=== PATIENT | female | born 1995 | race Caucasian/White ===

== ENCOUNTER 2020-08-24 06:10 | Inpatient (IN) ==
[2020-08-24] MEDS ORDERED: D5 1/2 NS 1000 ML 1,000 ML IV SCH (06:31)
[2020-08-24] MEDS: ANCEF VIAL 1 GRAM IVP ONE ×2 (06:31)
[2020-08-24] MEDS ORDERED: ANCEF 1 GRAM IV PREMIX* 1 G/50 ML BAG IV ONE ×2 (06:33→15:58)
[2020-08-24] MEDS ORDERED: VASOSTRICT INJ 20 UNITS VIAL ONE (06:53)
[2020-08-24] MEDS ORDERED: BETADINE SOLN ONE (06:53)
[2020-08-24 06:57] VITALS: BMI 26.0
[2020-08-24] MEDS ORDERED: TORADOL 30 MG VIAL ONE (07:00)
[2020-08-24] MEDS ORDERED: OFIRMEV IV 1000 MG VIAL 1,000 MG/100 ML VIAL IV ONE (07:01)
[2020-08-24] MEDS ORDERED: FENTANYL INJ 100 mcg ONE ×2 (07:01→15:40)
[2020-08-24] MEDS ORDERED: NS 1000 ML 1,000 ML ONE ×4 (07:01→17:42)
[2020-08-24] MEDS ORDERED: DILAUDID INJ ONE (07:01)
[2020-08-24] MEDS ORDERED: ROBINUL ONE ×2 (07:20→16:09)
[2020-08-24] MEDS ORDERED: NORCURON INJ 10 MG VIAL ONE ×2 (07:20→16:09)
[2020-08-24] MEDS ORDERED: QUELICIN (OR ANECTINE) ONE ×2 (07:20→16:09)
[2020-08-24] MEDS ORDERED: VERSED ONE ×2 (07:20→16:09)
[2020-08-24] MEDS ORDERED: ULTANE GAS IN ONE ×2 (07:20→16:09)
[2020-08-24] MEDS ORDERED: DIPRIVAN VIAL ONE ×2 (07:20→16:09)
[2020-08-24] MEDS ORDERED: XYLOCAINE 1 % (PLAIN) ONE (07:20)
[2020-08-24] MEDS ORDERED: NEOSTIGMINE INJ ONE ×2 (07:20→16:09)
[2020-08-24] MEDS ORDERED: DECADRON INJ ONE (07:20)
[2020-08-24] MEDS ORDERED: ZOFRAN INJ 4 MG VIAL ONE ×2 (07:20→16:09)
[2020-08-24] MEDS ORDERED: BENADRYL INJ 50 MG VIAL IVP PRN ×4 (09:13→17:55)
[2020-08-24] MEDS ORDERED: PHENERGAN INJ 25 MG IM PRN ×2 (09:13→17:55)
[2020-08-24] MEDS ORDERED: ZOFRAN INJ 4 MG VIAL IVP PRN ×3 (09:13→17:55)
[2020-08-24] MEDS ORDERED: DILAUDID INJ IVP PRN (09:13)
[2020-08-24] MEDS ORDERED: REGLAN INJ 10 MG VIAL IVP PRN ×3 (09:13→17:55)
[2020-08-24] MEDS ORDERED: TORADOL 30 MG VIAL IVP PRN (09:37)
[2020-08-24] MEDS ORDERED: NARCAN INJ IVP PRN (09:37)
[2020-08-24] MEDS ORDERED: PERCOCET TAB 5/325 MG PO PRN (09:37)
[2020-08-24] MEDS: D5 1/2 NS 1000 ML 1,000 ML IV SCH ×2 (10:08→20:29)
[2020-08-24] MEDS: ZOFRAN INJ 4 MG VIAL IVP PRN ×2 (10:09→23:24)
[2020-08-24] MEDS ORDERED: NS 500 ML IV 500 ML IV ONE ×2 (11:24→14:11)
[2020-08-24] MEDS ORDERED: VENTOLIN or PROAIR HFA ONE (11:31)
[2020-08-24 13:36] LABS: HEMATOCRIT 26.7 % (36.0-47.0); HEMOGLOBIN 8.9 g/dL (12.0-16.0)
[2020-08-24] MEDS ORDERED: NS IRRIGATION* 1,000 ML ONE (13:53)
[2020-08-24] MEDS ORDERED: VENTOLIN or PROAIR HFA IN PRN (14:09)
[2020-08-24] MEDS ORDERED: EPHEDRINE SULFATE INJ IV ONE (14:12)
[2020-08-24] MEDS ORDERED: NS 100 ML IV 100 ML IV ONE (15:29)
--- NOTE | 2020-08-24 16:02 | CT ---
EXAM: CT ABDOMEN AND PELVIS WITH INTRAVENOUS CONTRASTHISTORY: Decreased blood pressure. Status post total vaginal hysterectomy.TECHNIQUE: Spiral axial CT images are obtained through the abdomen and pelvis without the administration of oral contrast and with the administration of intravenous contrast. Additional coronal and sagittal reformatted images are reconstructed.DOSIMETRY: Total DLP 519.5 mGycm; CTDI 9.5 mGyCOMPARISON: None available.FINDINGS:PERITONEAL CAVITY: There is a very large acute intraperitoneal hemorrhage/hemorrhagic ascites, with active contrast extravasation within the left pelvis; present recent postsurgical acute hemorrhage. The patient appears to be status post hysterectomy.GASTROINTESTINAL TRACT: There is no evidence for bowel herniation, bowel obstruction, colitis or diverticulitis. A normal-appearing appendix is seen.GENITOURINARY SYSTEM: The kidneys are unremarkable. There is no ureteral calculus or stigmata of obstructive uropathy. A Scruggs balloon catheter is seen with and an incompletely distended urinary bladder, with small amount of air within the urinary bladder lumen (likely secondary to Scruggs introduction).CT ABDOMEN: The liver, spleen, pancreas, adrenal glands, gallbladder, aorta, and inferior vena cava are within normal limits for a CT scan. There is no intra-abdominal or retroperitoneal lymphadenopathy, free fluid, or free air seen. No abdominal herniation is noted.CT PELVIS: The visualized bony structures are within normal limits. No pelvic sidewall or inguinal lymphadenopathy is seen. No inguinal herniation is noted. No free air is seen.LUNG BASES: The lung bases are clear. Bilateral breast implants are noted.IMPRESSION:1. Very large acute intraperitoneal hemorrhage/hemorrhagic ascites, with active contrast extravasation within the left pelvis; present recent postsurgical acute hemorrhage.2. No evidence for renal stone disease or obstructive uropathy.3. No evidence for acute appendicitis, bowel herniation/obstruction, colitis or diverticulitis seen.4. No free air, mass lesions, or lymphadenopathy seen.Electronically signed by: Kita Brito (Aug 24, 2020 16:01:18)
[2020-08-24] MEDS ORDERED: EPHEDRINE SULFATE INJ ONE (16:09)
[2020-08-24] MEDS ORDERED: NEO-SYNEPHRINE INJ ONE (16:09)
[2020-08-24 16:45] LABS: HEMOGLOBIN 5.5 g/dL (12.0-16.0)
[2020-08-24 16:46] LABS: HEMATOCRIT 16.6 % (36.0-47.0)
[2020-08-24] MEDS: TORADOL 30 MG VIAL IVP PRN (20:28)
[2020-08-24 20:37] LABS: HEMATOCRIT 39.4 % (36.0-47.0)
[2020-08-24 20:38] LABS: HEMOGLOBIN 12.8 g/dL (12.0-16.0)
[2020-08-25] MEDS: D5 1/2 NS 1000 ML 1,000 ML IV SCH ×2 (05:25→13:50)
[2020-08-25 06:50] LABS: BASOPHILS % (AUTO) 0 % (0.2-1.0); HEMATOCRIT 30.9 % (36.0-47.0); HEMOGLOBIN 10.7 g/dL (12.0-16.0); LYMPHOCYTES # (AUTO) 2.1 X10^3/uL (1.3-2.9); LYMPHOCYTES % (AUTO) 11.5 % (21.0-51.0); MEAN CORPUSCULAR HEMOGLOBIN 31.4 pg (27.0-34.0); MEAN CORPUSCULAR HGB CONC 34.5 g/dL (33.0-35.0); MEAN PLATELET VOLUME 8.9 fL (7.4-11.0); MONOCYTES # (AUTO) 1.5 x10^3/uL (0.3-0.8); MONOCYTES % (AUTO) 8.3 % (0.0-13.0); NEUTROPHILS # (AUTO) 14.4 x10^3/uL (2.2-4.8); NEUTROPHILS % (AUTO) 80.2 % (42.0-75.0); PLATELET COUNT 153 X10^3/uL (150.0-450.0); RED CELL DISTRIBUTION WIDTH 14.6 % (11.6-16.5)
[2020-08-25 06:57] LABS: BLOOD UREA NITROGEN 10 mg/dL (7-18); CALCIUM 6.4 mg/dL (8.5-10.1); CARBON DIOXIDE 19.1 mmol/L (21-32); CHLORIDE 108 mmol/L (98-107); COR NA(FOR HYPERGLY) 137 mmol/L (136-145); SODIUM 137 mmol/L (136-145); eGFR NON BLACK RACES > 60 (>60)
[2020-08-25] MEDS ORDERED: MOTRIN TAB 800 MG PO PRN (08:52)
[2020-08-25] MEDS ORDERED: PERCOCET TAB 5/325 MG PO PRN (08:52)
[2020-08-25] MEDS ORDERED: ESTRACE PO SCH (09:00)
[2020-08-25] MEDS ORDERED: EFFEXOR TAB 50 MG (BID DOSING) PO SCH (09:00)
[2020-08-25] MEDS ORDERED: COLACE CAP 100 MG PO SCH (09:00)
[2020-08-25] MEDS: ZOFRAN INJ 4 MG VIAL IVP PRN ×2 (10:49→12:11)
[2020-08-25] MEDS: TORADOL 30 MG VIAL IVP PRN (10:51)
[2020-08-25] MEDS ORDERED: BACTROBAN TOPICAL OINT TOP SCH (14:00)
[2020-08-25 17:01] VITALS: BP 124/58
== END 2020-08-25 17:17 | disposition home or self-care (01) | DRG 357 ==
LOC: MED/SURG 06:10 → SURG1 06:10 → MED/SURG 09:39 → UNDODISOB 08-25 17:17
PROVIDERS: ADMIT Specialist; ATTEND Specialist
DX: R10.2 Pelvic and perineal pain; D62 Acute posthemorrhagic anemia; N94.4 Primary dysmenorrhea; N99.820 Postprocedural hemorrhage of a genitourinary system organ or structure following a genitourinary system procedure